=== PATIENT | male | born 1955 | race Caucasian/White ===

== ENCOUNTER 2016-08-15 14:28 | Observation (INO) | payer SELFPAY ==
--- NOTE | 2016-08-15 15:13 | DX ---
PA and lateral chest. August 15, 2016. Clinical History: Chest pain. Dyspnea. Comparison Study: None available. Findings: Diffuse interstitial thickening is present throughout the mid and lower lungs bilaterally, suggestive of interstitial pneumonitis or chronic interstitial lung disease. More confluent opacity i s identified in the right middle lobe, with possible superimposed pneumonia. Underlying hyperinflatio n is compatible with COPD. Heart size is normal. No pleural effusion... Impression: Underlying emphysema, with background interstitial thickening in the mid and lower lungs bilaterally suggestive of interstitial pneumonitis or chronic interstitial disease. Possible superimp osed pneumonia, right middle lobe.
[2016-08-15] MEDS ORDERED: predniSONE 20 MG TAB PO ONE (15:38)
[2016-08-15] MEDS ORDERED: IPRATROPIUM/ALBUTEROL 3 ML DEYVIAL IH ONE (15:39)
--- NOTE | 2016-08-15 15:40 | EDPHY ---
H & P Stated Complaint: +SOB & cough for 2 months Time Seen by Provider: 08/15/16 15:24 HPI/ROS: HPI: 61-year-old male presents to emergency department with chief concern productive cough, shortness of breath x2 months. Reports associated chills, weakness, dizziness over the past several days. Denies fever, chest pain, abdominal pain, nausea, vomiting, diarrhea. Current pack daily smoker over 40 years. Has no primary care provider. Did not receive a flu shot. Past medical history includes right inguinal hernia, pneumonia. Only home medications include Tylenol p.m. as needed. He lives in [place]. . ROS:10 point review of systems is negative other than as stated in HPI Source: Patient Exam Limitations: No limitations - Personal History Current Tetanus/Diphtheria Vaccine: No Current Tetanus Diphtheria and Acellular Pertussis (TDAP): No - Medical/Surgical History Hx Asthma: No Hx Chronic Respiratory Disease: No Hx Diabetes: No Hx Cardiac Disease: No Hx Renal Disease: No Hx Cirrhosis: No Hx Alcoholism: No Hx HIV/AIDS: No Hx Splenectomy or Spleen Trauma: No - Family History Significant Family History: No pertinent family hx - Social History Smoking Status: Current every day smoker Alcohol Use: Occasionally Drug Use: None Additional Social History: , lives in [place] - Physical Exam Exam: Temp 36.6, heart rate 76, respiratory rate 16, blood pressure 138/95, 87% on room air General: Awake, alert, calm, cooperative. No acute distress. Head: Normalocephalic. Atraumatic. EENT: PERRLA. EOMI. No pallor or injection. Anicteric. No nystagmus. No injection. TMs intact bilaterally with normal landmarks. No rhinnorhea, nasal passages clear. Oropharynx without redness, exudates, or lesions. Tonsils 2+ bilaterally, no exudates. Neck: Supple, nontender. No lymphadenopathy. Full range of motion. No meningismus. Respiratory: Breathing unlabored. Breath sounds diminished with rhonchi and inspiratory wheezes throughout. CV: Chest nontender, atraumatic. Heart rate regular. No murmur, distal pulses 2+ bilaterally. Brisk cap refill all extremities. GI: Abdomen soft, nontender. Bowel sounds normoactive and positive x4 quadrants. Neuro: Alert. Oriented x 3. Speech clear. Nonfocal cranial nerves throughout. Sensation intact all extremities. Skin: Skin warm, dry, intact. No rashes, abrasions, or lacerations. Skin turgor normal. Extremities: Full range of motion in all 4 extremities. Strength 5+ all extremities. Constitutional: Initial Vital Signs Temperature (C) 36.6 C 08/15/16 14:31 Heart Rate 76 08/15/16 14:31 Respiratory Rate 16 08/15/16 14:31 Blood Pressure 138/95 H 08/15/16 14:31 O2 Sat (%) 87 L 08/15/16 14:31 O2 Delivery Mode Nasal Cannula O2 (L/minute) 2 Allergies/Adverse Reactions: No Known Allergies Allergy (Unverified 08/15/16 14:33) Home Medications: Medication Instructions Recorded NK [No Known Home Meds] 08/15/16 Medical Decision Making - Diagnostics Imaging: PA and lateral chest. August 15, 2016. Clinical History: Chest pain. Dyspnea. Comparison Study: None available. Findings: Diffuse interstitial thickening is present throughout the mid and lower lungs bilaterally , suggestive of interstitial pneumonitis or chronic interstitial lung disease. More confluent opacity is identified in the right middle lobe, with possible superimposed pneumonia. Underlying hyperinflation is compatible with COPD. Heart size is normal. No pleural effusion... Impression: Underlying emphysema, with background interstitial thickening in the mid and lower lungs bilaterally suggestive of interstitial pneumonitis or chronic interstitial disease. Possible superimposed pneumonia, right middle lobe. Dictated By: Jarred Emerson MD ED Course/Re-evaluation: 61-year-old male presents to emergency department with cough, shortness of breath for 2 months. Room air oxygen saturation 87%. 2.5 L oxygen nasal cannula O2 sats 95%. Chest x-ray shows chronic interstitial disease, underlying emphysema, likely superimposed right middle lobe pneumonia. Labs, blood cultures pending, EKG: Sinus rhythm, rate 72. Normal intervals. No axis deviation. No evidence of acute ischemia. Flu swab negative. Flu PCR pending. Patient given 750 mg p.o. Levaquin, 60 mg p.o. prednisone, DuoNeb. Will be admitted to [facility] hospitalist service. Bed requested. Report given to Dr. Kaylynn Hoyt. Pt transferred in stable condition. Differential Diagnosis: Differential diagnosis includes but is not limited to pneumonia, COPD, emphysema , influenza, CHF - Data Points Laboratory Results: Laboratory Results 08/15/16 15:50 08/15/16 08/15/16 15:50 15:15 WBC 12.53 H 10^3/uL (3.80-9.50) RBC 6.77 H 10^6/uL (4.40-6.38) Hgb 20.7 H* g/dL (13.7-17.5) Hct 60.6 H* % (40.0-51.0) MCV 89.5 fL (81.5-99.8) MCH 30.6 pg (27.9-34.1) MCHC 34.2 g/dL (32.4-36.7) RDW 14.6 % (11.5-15.2) Plt Count 204 10^3/uL (150-400) MPV 8.9 fL (8.7-11.7) Neut % (Auto) 76.1 H % (39.3-74.2) Lymph % (Auto) 15.4 % (15.0-45.0) [place] % (Auto) 7.2 % (4.5-13.0) Eos % (Auto) 0.6 % (0.6-7.6) Baso % (Auto) 0.4 % (0.3-1.7) Nucleat RBC Rel Count 0.0 % (0.0-0.2) Absolute Neuts (auto) 9.54 H 10^3/uL (1.70-6.50) Absolute Lymphs (auto) 1.93 10^3/uL (1.00-3.00) Absolute Monos (auto) 0.90 H 10^3/uL (0.30-0.80) Absolute Eos (auto) 0.07 10^3/uL (0.03-0.40) Absolute Basos (auto) 0.05 10^3/uL (0.02-0.10) Absolute Nucleated RBC 0.00 10^3/uL (0-0.01) Immature Gran % 0.3 % (0.0-1.1) Immature Gran # 0.04 10^3/uL (0.00-0.10) Sodium Pending Potassium Pending Chloride Pending Carbon Dioxide Pending Anion Gap Pending BUN Pending Creatinine Pending Estimated GFR Pending Glucose Pending Calcium Pending Troponin I Pending Influenza Typ A,B (DFA) NEGATIVE FOR FLU (NEGATIVE) Influenza A & B (PCR) Pending Medications Given: Discontinued Medications Albuterol/Ipratropium (Duoneb) 3 ml IH EDNOW ONE Stop: 08/15/16 15:40 Last Admin: 08/15/16 15:45 Dose: 3 ml Prednisone (Prednisone) 60 mg PO EDNOW ONE Stop: 08/15/16 15:39 Last Admin: 08/15/16 15:45 Dose: 60 mg Departure - Departure Disposition: [facility] Inpatient Acute Clinical Impression: COPD (chronic obstructive pulmonary disease), Pneumonia, Hypoxic Condition: Fair Referrals: NONE *PRIMARY CARE P,. [Primary Care Provider] - As per Instructions
[2016-08-15 16:03] LABS: % IMMATURE GRANULYOCYTES 0.3 % (0.0-1.1); ABSOLUTE IMMATURE GRANULOCYTES 0.04 10^3/uL (0.00-0.10); ADD DIFF? NO; ADD MORPH? NO; ADD SCAN? NO; ATYPICAL LYMPHOCYTE FLAG 30 (0-99); FRAGMENT RBC FLAG 0 (0-99); LEFT SHIFT FLG 0 (0-99); LIPEMIA HEMOLYSIS FLAG 90 (0-99); MEAN CELL HEMOGLOBIN 30.6 pg (27.9-34.1); MEAN CELL HEMOGLOBIN CONCENTR. 34.2 g/dL (32.4-36.7); MEAN CELL VOLUME 89.5 fL (81.5-99.8); MEAN PLATELET VOLUME 8.9 fL (8.7-11.7); PLATELET CLUMPS FLAG 0 (0-99); PLATELET COUNT 204 10^3/uL (150-400); RED BLOOD CELL COUNT 6.77 10^6/uL (4.40-6.38); RED CELL DISTRIBUTION WIDTH 14.6 % (11.5-15.2)
[2016-08-15 16:12] LABS: HEMATOCRIT 60.6 % (40.0-51.0); HEMOGLOBIN 20.7 g/dL (13.7-17.5)
--- NOTE | 2016-08-15 16:14 | CPEKG ---
Heart Rate: 72 RR Interval: 833 P-R Interval: 144 QRSD Interval: 104 QT Interval: 420 QTC Interval: 460 P Orient: 92 QRS Orient: 85 T Wave Orient: 72 EKG Severity - OTHERWISE NORMAL ECG - EKG Impression: SINUS RHYTHM EKG Impression: BORDERLINE RIGHT AXIS DEVIATION Electronically Signed By: Saeid Santiago 15-Aug-2016 21:08:31
[2016-08-15 16:20] LABS: ANION GAP 9 mEq/L (8-16); CARBON DIOXIDE 28 mEq/l (22-31); CHLORIDE 103 mEq/L (97-110); CREATININE 0.9 mg/dL (0.7-1.3); GLOMERULAR FILTRATION RATE > 60; GLUCOSE 80 mg/dL (70-100); POTASSIUM 5.2 mEq/L (3.5-5.2); SODIUM 140 mEq/L (134-144)
[2016-08-15 16:31] LABS: TROPONIN I < 0.012 ng/mL (0-0.034)
[2016-08-15] MEDS ORDERED: ONDANSETRON 4 MG/2 ML VIAL IVP PRN (16:33)
[2016-08-15] MEDS ORDERED: ONDANSETRON DISINTEGRATING 4 MG TAB PO PRN (16:33)
[2016-08-15] MEDS ORDERED: ACETAMINOPHEN 325 MG TAB PO PRN (16:33)
[2016-08-15] MEDS ORDERED: IPRATROPIUM/ALBUTEROL 3 ML DEYVIAL IH PRN (16:34)
[2016-08-15] MEDS ORDERED: NS 1,000 ML IV SCH (16:45)
--- NOTE | 2016-08-15 18:59 | GHP ---
[f rep st] HISTORY AND PHYSICAL DATE OF ADMISSION: 08/15/2016 CHIEF COMPLAINT: Acute hypoxia. HISTORY OF PRESENT ILLNESS: The patient is a 61-year-old male with no significant past medical history, except for tobacco abuse, presenting with a cough for 2 months and shortness of breath. His significant other forced him to come in today because he has not been getting better. Reports a cough for 2 months, now with clear sputum. Several weeks ago he said it was green sputum. He has had shortness of breath over the same period, worse over the past 2 weeks , especially with walking, but can occur at rest. He denies fevers or sweats. Intermittent chills. No chest pain. No lower extremity edema. No pillow orthopnea. No PND. He has had a normal appetite. No headaches. No nausea, vomiting or diarrhea. Smoked a pack of tobacco for the past 40 years. Denies sore throat, nasal congestion. REVIEW OF SYSTEMS: Complete 10-point review of systems negative, except as noted in HPI. PAST MEDICAL HISTORY: Tobacco history. PAST SURGICAL HISTORY: Right inguinal hernia. SOCIAL HISTORY: Lives in [place]. 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 Forty pack-year tobacco. Occasional alcohol. No illicits. MEDICATIONS: None. ALLERGIES: No known drug allergies. FAMILY HISTORY: Mother with possible cancer. PHYSICAL EXAMINATION: VITAL SIGNS: Temperature 36.6, blood pressure 138/95, 87 % on room air. Respirations 16. GENERAL: Patient is very thin. No acute distress. HEENT: PERRLA, EOMI. Oropharynx clear. No sinus tenderness to palpation. CV: Regular rate and rhythm. No murmurs, gallops or rubs. LUNGS: Clear to auscultation. Diminished breath sounds throughout, but no wheezes. ABDOMEN: Soft, nontender, nondistended. Positive bowel sounds. : No suprapubic tenderness. MUSCULOSKELETAL: 5/5 upper and lower extremity strength. NEURO: 2 through 12 intact. PSYCH: Alert and oriented x3, pleasant. LABS: WBC 12.3, hemoglobin 20, hematocrit 60, platelets are 204. Sodium 140, potassium 5.2, chloride 103, carbon dioxide 28, BUN 15, creatinine 0.9, glucose 80. Troponin less than 0.12. Rapid influenza negative. PCR is pending. EKG is personally reviewed by me. Normal sinus rhythm. Right axis deviation. Chest x-ray: Hyperexpanded emphysematous changes. No distinct opacity or effusion. ASSESSMENT AND PLAN: 1. Acute on suspected chronic hypoxemic respiratory failure: due to underlying chronic obstructive pulmonary disease. The patient has a significant tobacco history with emphysematous changes on x-ray. Troponin and EKGs were negative for ischemia. Flu was negative, but PCR is pending. There is no overt pneumonia on x-ray. The patient denies purulent sputum or fevers, so I am less suspicious for an acute pneumonia. Will treat with steroids and DuoNebs. Hold off on antibiotics at this time. 2. Polycythemia: secondary to underlying chronic obstructive pulmonary disease. Will hydrate and repeat in the morning. The patient denies headaches , visual changes that would be of more concern. 3. Tobacco abuse: Patient was counseled on cessation. 4. Diet: Regular. 5. DVT prophylaxis: Low risk, ambulatory. DISPOSITION: Patient warrants observation admission given acute hypoxia warranting DuoNebs, steroids and continuous pulse oximetry. /[id number]/MODL MTDD
[2016-08-16 04:18] LABS: HEMATOCRIT 58.1 % (40.0-51.0); HEMOGLOBIN 19.4 g/dL (13.7-17.5); MEAN CELL HEMOGLOBIN 30.3 pg (27.9-34.1); MEAN CELL HEMOGLOBIN CONCENTR. 33.4 g/dL (32.4-36.7); MEAN CELL VOLUME 90.8 fL (81.5-99.8); RED BLOOD CELL COUNT 6.4 10^6/uL (4.40-6.38); RED CELL DISTRIBUTION WIDTH 14.2 % (11.5-15.2)
[2016-08-16 04:49] LABS: ANION GAP 9 mEq/L (8-16); CALCIUM 8.8 mg/dL (8.5-10.4); CARBON DIOXIDE 24 mEq/l (22-31); CHLORIDE 109 mEq/L (97-110); GLOMERULAR FILTRATION RATE > 60; GLUCOSE 115 mg/dL (70-100); POTASSIUM 5.3 mEq/L (3.5-5.2); SODIUM 142 mEq/L (134-144)
[2016-08-16] MEDS ORDERED: predniSONE 20 MG TAB PO SCH (09:00)
[2016-08-16] MEDS ORDERED: ENOXAPARIN 40 MG/0.4 ML SYR SC SCH (09:00)
[2016-08-16 10:30] LABS: ANION GAP 9 mEq/L (8-16); CALCIUM 8.8 mg/dL (8.5-10.4); CARBON DIOXIDE 24 mEq/l (22-31); CHLORIDE 109 mEq/L (97-110); CREATININE 0.9 mg/dL (0.7-1.3); GLOMERULAR FILTRATION RATE > 60; GLUCOSE 110 mg/dL (70-100); SODIUM 142 mEq/L (134-144)
[2016-08-16] MEDS ORDERED: IOPAMIDOL (ISOVUE 370) 100 ML BTL IV ONE (11:49)
--- NOTE | 2016-08-16 14:54 | CT ---
Contrast-Enhanced CT Scan of the Chest (CT Pulmonary Angiography) CLINICAL HISTORY: 61-year-old presenting to the ED with a productive cough and shortness of breath wh ich has been ongoing for 2 months. The patient is a current pack daily smoker, and has smoked for ove r 40 years. The patient has some dyspnea on exertion. Rule out PE. Technique: The patient received 90 mL of IV [id number]-370 without complication, and a multidetector sonido prosper CT scan was obtained from the base of the neck inferiorly to the upper abdomen, reformatted at 1. 25 mm increments, and reviewed at a variety window and level settings. Multiplanar reconstructions ar e reviewed on the workstation as well. The DFOV is 36.0 cm. Dose reduction protocol was used. COMPARISON STUDY: Chest radiography from August 15, 2016. FINDINGS: CT Angiography: The ascending and descending thoracic aorta are normal in size, with no aneurysm or d issection. There is a normal anatomic arrangement of the great vessels off of the aortic arch. The ca rdiac size is normal. The visualized upper abdominal aorta is also normal. The main pulmonary artery, the main right and main left pulmonary arteries, and the first, second, and third order pulmonary se gments are contrast-opacified, with no filling defect to suggest acute or chronic thromboemboli. Ther e is some mild enlargement of the central pulmonary vasculature, with the main pulmonary artery measu ring 3.4 cm compared with the adjacent ascending thoracic aorta measuring 3.1 cm. This would indicate some pulmonary artery hypertension. There is no interventricular septal bowing. There is no substant ial reflux of contrast into the intrahepatic IVC. There is no pericardial effusion. Contrast-Enhanced CT Scan of the chest: The lungs are hyperexpanded with a moderate degree of centril obular emphysema. There is some mild subpleural bullous changes in the apices, with areas of pleural- parenchymal fibrosis. There is some minimal subsegmental atelectasis in the inferomedial right middle lobe and at the posterior left costophrenic angle, and some compressive subsegmental atelectasis solomon evelia minimal infiltrate at the right posterior costophrenic angle. There is no evidence of a right mid dle lobe pneumonia (which had been suspected on chest radiography yesterday). Diffuse peribronchial t hickening is seen. This exam was not tailored for evaluation of interstitial lung disease, and if trena t remains a concern the patient can return for high-resolution protocol exam. There is no adenopathy. There is an abnormal appearance to the right lobe of the thyroid gland, and contains a 1.9 x 1.5 cm hypodense mass. A dedicated thyroid sonography may be of benefit in further evaluation. The osseous s tructures are age-appropriate. The visualized upper abdomen is grossly unremarkable, given the arteri al phase of contrast enhancement. IMPRESSION: 1. There is no CT evidence of pulmonary artery thromboemboli. 2. Secondary features suggesting pulmonary artery hypertension. 3. Centrilobular emphysema with diffuse peribronchial thickening. 4. Mild bibasilar subsegmental atelectasis (minimal infiltrate at the posterior right lung base is no t excluded). 5. There is a 1.5 x 1.9 cm hypodense mass associated with the right lobe of the thyroid gland. Dedica yolis thyroid sonography is suggested for additional assessment.
[2016-08-16 15:01] VITALS: BP 121/81; PULSE 82; RESP 16; TEMP 98.1; O2SAT 82
--- NOTE | 2016-08-16 20:57 | GDS ---
[f rep st] DISCHARGE SUMMARY DIAGNOSES: 1. Chronic obstructive pulmonary disease/emphysema. 2. Chronic respiratory failure. 3. Suspected chronic obstructive pulmonary disease exacerbation. 4. Erythrocythemia secondary to chronic hypoxia. 5. Thyroid nodule needing outpatient followup. HOSPITAL COURSE: This is a 61-year-old man who presented with shortness of breath. Found to be hypo xic in the emergency department. CT scan revealed central lobular emphysema. He has a long history of smoking tobacco. Treated with steroids as well as antibiotics with significant improvement though he continues to be hypoxic. I noted him to be 83% on room air. I had a long conversation with him and his friends regarding his new diagnosis of emphysema. I counseled him on tobacco cessation as we ll as using supplemental oxygen when he is hypoxic. I have given him prescriptions for Combivent, al buterol, tiotropium, Advair inhalers. Given him prescription for a short course of prednisone as wel l as a short course of Levaquin. I counseled him on the need for outpatient followup for his thyroid nodule. He and his friends are understanding. He currently does not have a PCP but he is working o n getting insurance and will find a PCP. /[id number]/MODL
== END 2016-08-16 17:00 | disposition home or self-care (01) ==
LOC: F1N 16:36
PROVIDERS: ADMIT Internal Medicine; ATTEND Student in an Organized Health Care Education/Training Program
DX: J43.2 Centrilobular emphysema (principal); J96.21 Acute and chronic respiratory failure with hypoxia; E04.1 Nontoxic single thyroid nodule; F17.210 Nicotine dependence, cigarettes, uncomplicated
CPT/HCPCS: G0378; J1650; Q9967